=== PATIENT | male | born 1980 | race Caucasian/White ===

== ENCOUNTER 2023-02-17 20:37 | Emergency (ER) | payer SELFPAY ==
[2023-02-17 20:42] VITALS: BP 113/78; PULSE 130; RESP 18; TEMP 38.2; O2SAT 97; BMI 33.0
[2023-02-17 20:57] VITALS: PULSE 134; RESP 18; TEMP 38.2; O2SAT 94
--- NOTE | 2023-02-17 21:02 | ED_ITS ---
HPI - Fever General Chief Complaint: Fever Stated Complaint: Fever, short of breath Time Seen by Provider: 02/17/23 20:55 History of Present Illness HPI Narrative: This 42-year-old male comes in reporting fever that began today. He states that he was not feeling well and thought it was allergies. This is been going on for 2 or 3 weeks. He did go into urgent care 4 days ago and received a prescription for montelukast which has not helped him at all. He does not report any shortness of breath and states that he just has an occasional cough. He does not report any symptoms of dysuria. He does arrive with temperature of 100.7? F and a heart rate in the 130s. He is not reporting any pain. He does not report any shortness of breath or chest discomfort. Related Data Previous Rx's Medication Instructions Recorded azelastine 0.05 % eye drops 1 drp ophthalmic (eye) BID #6 mL 02/09/23 montelukast 10 mg tablet 10 mg PO QDAY #30 tabs 02/09/23 Allergies Allergy/AdvReac Type Severity Reaction Status Date / Time carbamide peroxide Allergy Mild Unknown Verified 02/09/23 15:22 glycerin Allergy Mild Unknown Verified 02/09/23 15:22 Review of Systems Status of ROS Reports: 10 or more systems reviewed and unremarkable except as noted in History and below Narrative Constitutional: No weight gain or loss. Fever today that he measured at around 102? F. Eyes: No discharge. No vision changes. HENT: No congestion, no sore throat, no ear pain. Cardiovascular: No chest pain, no palpitations. Respiratory: No shortness of breath, no wheezes. Occasional cough. Gastrointestinal: No abdominal pain, no vomiting, no diarrhea. Genitourinary: No dysuria, no hematuria. Musculoskeletal: Normal range of motion. Skin: No rashes, no pruritis. Neurological: No dizziness, weakness, sensory change, speech change. Endo/Heme/Allergies: No bruising or bleeding. No polydipsia. Pysch: no suicidality, no anxiety, no insomnia. All other systems reviewed and are negative. [facility] Medical History (Updated 02/17/23 @ 22:09 by [place] Augustin MD) Otitis media ?H66.90 - Otitis media, unspecified, unspecified ear (ICD-10) Social History Smoking Status: Never smoker Do you use any of these nicotine containing products: None Non-prescribed substance use: denies use Exam Narrative Exam Narrative: Constitutional: Well-developed, well-nourished, no acute distress. HEENT: Normocephalic, atraumatic. Neck: Normal range of motion. Nontender. Supple. Heart: Regular. No murmurs. Tachycardia. Intact distal pulses. Lungs: Clear to auscultation. No chest discomfort. No wheezes, rhonchi, or rales. Abdomen: Normal bowel sounds. Nontender. No rebound tenderness. Genitalia: Deferred. Back: No midline tenderness. Normal range of motion. Extremities: Normal range of motion. No injury. Skin: Intact. No rash. Warm. No erythema or pallor. Neurologic: No altered sensation. No weakness. Alert and oriented. Psychiatric: No suicidality. No anxiety or depression. No insomnia. Nursing notes and vitals signs are reviewed. Const Vital Signs, click to edit/add: Vital Signs - 24 hr 02/17/23 20:42 02/17/23 20:57 Temperature 100.7 F H 100.7 F H Pulse Rate [Pulse Oximeter] 130 H 134 H Respiratory Rate 18 18 Blood Pressure [Right Upper Arm] 113/78 Pulse Oximetry 97 94 Oxygen Delivery Method Room Air Room Air Course Vital Signs Vital signs: Initial Vital Signs Temperature 100.7 F H 02/17/23 20:42 Temperature Source Oral 02/17/23 20:42 Pulse Rate 130 H 02/17/23 20:42 Respiratory Rate 18 02/17/23 20:42 Blood Pressure 113/78 02/17/23 20:42 Blood Pressure Mean 89 02/17/23 20:42 Blood Pressure Position Sitting 02/17/23 20:42 Pulse Oximetry 97 02/17/23 20:42 Oxygen Delivery Method Room Air 02/17/23 20:42 Vital Signs Temperature 100.7 F H 02/17/23 20:42 Pulse Rate 130 H 02/17/23 20:42 Respiratory Rate 18 02/17/23 20:42 Blood Pressure 113/78 02/17/23 20:42 Pulse Oximetry 97 02/17/23 20:42 Oxygen Delivery Method Room Air 02/17/23 20:42 Temperature 100.7 F H 02/17/23 20:57 Pulse Rate 134 H 02/17/23 20:57 Respiratory Rate 18 02/17/23 20:57 Blood Pressure 113/78 02/17/23 20:42 Pulse Oximetry 94 02/17/23 20:57 Oxygen Delivery Method Room Air 02/17/23 20:57 MDM - Fever MDM Narrative Medical decision making narrative: SIRS Criteria for sepsis involve any two of the following criteria: Temperature >38 or <36C; heart rate > 90 bpm; Respiratory rate >20 breaths/minute or partial pressure of CO2 < 32 mmHg. Based on this this patient does meet criteria for sepsis workup and treatment. This patient presents with symptoms suspicious for sepsis. Appropriate labs are ordered which may include CBC, BMP, lactate, and blood cultures. The initial lactate returns at 1.8. One thousand mL of IV fluids were ordered at a rate of 1000 mL/hr. Antibiotic treatment is not indicated at this time. Based on these results the patient does not have severe sepsis or septic shock. Chest x-ray returns with no acute findings. Lab results also are reassuring. His nasal pharyngeal swab does return positive for COVID. This is the explanation for his tachycardia and fever. Patient is not showing any sign of shortness of breath. He is okay to be discharged home. He received a prescription for Toradol. He is encouraged to return if becoming short of breath or worsening symptoms happen. Lab Data Labs: Lab Results 02/17/23 02/17/23 Range/Units 20:55 21:28 WBC 10.05 (4.50-11.00) K/uL RBC 5.44 (4.30-5.90) m/uL Hgb 15.7 (13.5-17.5) gm/dL Hct 46.9 (37.0-53.0) % MCV 86 (80-100) fL MCH 29 (26-34) pg MCHC 34 (32-36) gm/dL RDW Coeff of Sandra 13.0 (11.5-15.5) % Plt Count 177 (140-440) K/uL Neut % (Auto) 83.2 H (42.0-72.0) % Lymph % (Auto) 7.4 L (20-44) % [place] % (Auto) 8.2 (0.0-11.0) % Eos % (Auto) 0.8 (0.0-7.0) % Baso % (Auto) 0.3 (0.0-3.0) % Neut # (Auto) 8.40 H (1.7-7.0) K/uL Lymph # (Auto) 0.70 L (0.90-2.90) K/uL [place] # (Auto) 0.80 (0.00-0.90) K/UL Eos # (Auto) 0.08 (0.00-0.50) K/uL Baso # (Auto) 0.03 (0.00-0.30) K/uL Abs Immat Gran (auto) 0.01 (0.00-0.30) K/uL Imm/Tot Granulo (auto) 0.1 % Sodium 135 (135-149) mmol/L Potassium 3.8 (3.6-5.1) mmol/L Chloride 100 (96-114) mmol/L Carbon Dioxide 27 (20-32) mmol/L Anion Gap 8 (7-15) mEq/L BUN 13 (5-24) mg/dL Creatinine 1.1 (0.5-1.5) mg/dL Estimated Creat Clear 84.64 Estimated GFR 86 ml/min Glucose 119 H (60-115) mg/dL Lactate 1.8 (0.5-1.9) mmol/L Calcium 9.0 (8.4-10.6) mg/dL SARS-CoV-2 (PCR) POSITIVE SARS-CoV-2 A (Negative) Influenza Type A (PCR) Negative PCR FLU A (Negative) Influenza Type B (PCR) Negative PCR FLU B (Negative) Discharge Plan Discharge Clinical Impression: COVID-19 Patient Disposition: Home, Self-Care Condition: Unchanged Additional Instructions: Take medication as needed and prescribed. Use [id number] medicines also as needed and directed. Follow up with MD or return if worsening symptoms happen. Prescriptions: No Action montelukast 10 mg tablet 10 mg PO QDAY Qty: 30 2RF azelastine 0.05 % drops 1 drp ophthalmic (eye) BID Qty: 6 2RF Follow Up/Referrals: Provider,Not a Local [Primary Care Provider] - Stand Alone Forms: [employer] Info Instructions
--- NOTE | 2023-02-17 21:09 | CRLHL7_ITS ---
For Patients: As a result of the Cures Act, medical imaging exams and procedure reports are released immediately into your electronic medical record. You may view this report before your referring provider. If you have questions, please contact your health care provider. INDICATION: Fever, tachycardia TECHNIQUE: Chest radiograph 2 views COMPARISON: 05/21/2012 FINDINGS: Mediastinum: The mediastinum is normal in appearance. The heart silhouette is normal in size and morphology. Lung: Small lung volumes with mild right basilar subsegmental atelectasis noted. No sign of pleural effusion seen. No pneumothorax is identified. Bone and Soft tissue: Unremarkable for age. IMPRESSION: 1. Small lung volumes with mild right basilar subsegmental atelectasis noted. Dictated by Raheel Sahni MD @ 02/17/2023 10:06:03 PM Dictated by: Raheel Sahni MD @ 02/17/2023 22:06:06 (Electronically Signed)
[2023-02-17 21:34] LABS: Lactate* 1.8 mmol/L (0.5-1.9)
[2023-02-17] MEDS: 0.9 % SODIUM CHLORIDE 1000 ml 1,000 ML IV (21:35)
[2023-02-17 21:38] LABS: Basophils Absolute Auto 0.03 K/uL (0.00-0.30); Basophils Percent Auto 0.3 % (0.0-3.0); Eosinophils Absolute Auto 0.08 K/uL (0.00-0.50); Eosinophils Percent Auto 0.8 % (0.0-7.0); Hematocrit 46.9 % (37.0-53.0); Hemoglobin* 15.7 gm/dL (13.5-17.5); Immature Granulocytes Abs Auto 0.01 K/uL (0.00-0.30); Immature Granulocytes Pct Auto 0.1 %; Lymphocytes Percent Auto 7.4 % (20-44); Mean Corpuscular HGB Conc 34 gm/dL (32-36); Mean Corpuscular Hemoglobin 29 pg (26-34); Mean Corpuscular Volume 86 fL (80-100); Monocytes Percent Auto 8.2 % (0.0-11.0); Neutrophils Percent Auto 83.2 % (42.0-72.0); Platelet Count* 177 K/uL (140-440); Red Blood Count 5.44 m/uL (4.30-5.90); White Blood Count* 10.05 K/uL (4.50-11.00)
[2023-02-17 21:40] LABS: Slide Review Reflex No
[2023-02-17 21:41] LABS: PCR FLU A Negative PCR FLU A (Negative); PCR FLU B Negative PCR FLU B (Negative)
[2023-02-17] MEDS: ACETAMINOPHEN 500 MG TABLET 1000 MG PO (21:45)
[2023-02-17 21:52] LABS: Chloride* 100 mmol/L (96-114); Potassium* 3.8 mmol/L (3.6-5.1); Sodium* 135 mmol/L (135-149)
[2023-02-17 21:55] LABS: Anion Gap 8 mEq/L (7-15); Blood Urea Nitrogen* 13 mg/dL (5-24); Carbon Dioxide* 27 mmol/L (20-32); Creatinine* 1.1 mg/dL (0.5-1.5); Est. Creatinine Clearance* 84.64; Estimated Glomerular Filt Rate 86 ml/min; Glucose* 119 mg/dL (60-115)
[2023-02-17 21:57] LABS: SARS PCR* POSITIVE SARS-CoV-2 (Negative)
[2023-02-17 22:12] LABS: Free T4 Free Thyroxine* 0.94 ng/dL (0.70-1.85)
== END 2023-02-17 22:29 | disposition home or self-care (01) ==
PROVIDERS: Emergency Provider Emergency Medicine Emergency Medical Services
DX: U07.1 COVID-19 (principal)
CPT/HCPCS: 36415; 71046; 80048; 83605; 84439; 85025; 87040; 87631; 99283; 99284; A9270; J7030

== ENCOUNTER 2025-04-13 12:23 | Emergency (ER) | payer OTHER, SELFPAY ==
--- OUTSIDE RECORDS SUMMARY | 2025-04-13 12:26 | XMS_ITS | Clinical Summary ---
Author Organization [employer] [facility] Address [address] [place] [id number] Care Team Providers Care Account Manager [employer] Name Role Phone Ronal Ace MD Primary Care Provider + [phone] Allergies Active Allergy Reactions Criticality Noted Date Comments Mensah Flavor Vomiting 08/05/2021 Hydrogen Peroxide 10/16/2008 Medications loratadine (CLARITIN) 10 mg tabletIndicati ons:Other allergic rhinitis Take 1 tablet by mouth once daily. 20 tablet 0 5 Active HYDROcodone-ac etaminophen, 5-325 mg, (NORCO) per tabletIndicati ons:Sciatica, left Take 1 tablet by mouth every 4 hours if needed for Pain. Max acetaminophen dose: 4000mg in 24 hrs. 20 tablet 0 5 Active cyclobenzaprin e (FLEXERIL) 10 mg tabletIndicati ons:Spasm of abdominal muscles of right side Take 1 Tablet (10 mg) by mouth 3 times daily if needed for Muscle Spasm. 12 Tablet 2 Active Immunizations Immunization Administration Dates Next Due Tdap 08/12/2019 Social History Tobacco Use Types Packs/Day Years Used Date Smoking Tobacco: Passive Smo ke Exposure - Never Smoker Smokeless Tobacco: Never Alcohol Use Standard Drinks/Week Comments Yes 0 (1 standard drink = 0.6 oz pur e alcohol) social Sex and Gender Information Value Date Recorded Sex Assigned at Not on file Legal Sex Male 6:27 AM [employer] Gender Identity Not on file Sexual Orientation Not on file Obstetrics History Last Filed Vital Signs Vital Sign Reading Time Taken Comments Blood Pressure 117/75 08/06/2021 12:04 AM [employer] Pulse 86 08/06/2021 12:04 AM [employer]CE [employer] Temperature 36.7 C (98.1 F) 08/05/2021 11:34 PM [employer]ORCE [employer]IATOR Respiratory Rate 16 08/05/2021 11:34 PM [employer]CE [employer] Oxygen Saturation 96% 08/06/2021 12:04 AM [employer]ORCE MEDIATOR Inhaled Oxygen Concentration - - Weight 98 kg (216 lb) 08/05/2021 11:34 PM DIVORCE MEDIATOR Height 172.7 cm (5' 8) 08/05/2021 11:34 PM [employer]ORCE [employer] Body Mass Index 32.84 08/05/2021 11:34 PM [employer]CE [employer] Plan of Treatment Not on file Insurance [address] [place] [id number] [employer] [address] [place] [id number] [place] [phone] Care Teams Account Manager [employer] Relationship Specialty Start Date End Date Ronal Ace MD PCP - General 08/05/21
[2025-04-13 12:28] VITALS: BP 133/86; PULSE 84; RESP 20; TEMP 37.1; O2SAT 98; BMI 33.0
--- NOTE | 2025-04-13 12:36 | ED.GENADULT ---
HPI - General Adult General Date Seen: 04/13/25 Chief complaint: Abdominal Pain Stated complaint: GI Issue, Vomiting,chills Time Seen by Provider: 04/13/25 12:26 History of Present Illness HPI narrative: 44 yo gender and hot female who presents to the ER today, accompanied by his from home, for evaluation of abdominal pain, cramping, diarrhea, nausea. He notes that he ate quite a few (cooked) oysters at a buffet 8 days ago, last Monday. He was well last Monday and then on Monday started with abdominal cramping. The following day on Monday in addition to crampy started developing diarrhea that is been frequent every day since then in typically yellow water. Sometimes had a few flecks of blood in the diarrhea. Cramping is mostly in the left lower quadrant. He tends to feel worse in the mornings and is better in the afternoon and evenings. He has not had a fever. He has been nauseous but not vomiting. Urination has been. He initially thought that he might have a GI virus and so was trying to wait for his symptoms to get better but noticing that he has been continually getting sick now for 5 days, he was suspicious that was a bacterial infection so he came in. He does not have any other medical conditions. No immunosuppression or diabetes. No recent travel. No recent antibiotics. No sick exposures. His and children are not ill. No other suspicious food other than the oysters from the buffet. He has had previous appendectomy. Related Data Previous Rx's ?Medication ?Instructions ?Recorded doxycycline hyclate 100 mg capsule 100 mg PO BID #10 caps 04/13/25 ondansetron 4 mg disintegrating 4 mg PO Q8H PRN nausea and 04/13/25 tablet vomiting #10 tabs Allergies Allergy/AdvReac Type Severity Reaction Status Date / Time carbamide peroxide Allergy Mild Unknown Verified 03/07/23 14:50 glycerin Allergy Mild Unknown Verified 03/07/23 14:50 [facility] Medical History (Updated 04/13/25 @ 15:51 by Michael Tejeda MD) Otitis media ?H66.90 - Otitis media, unspecified, unspecified ear (ICD-10) Social History Smoking Status: Never smoker Do you use any of these nicotine containing products: None How often do you have a drink containing alcohol: monthly or less How often do you have six or more drinks on one occasion: Never AUDIT-C Alcohol total score: 1 Non-prescribed substance use: denies use Exam Narrative: Exam Narrative: Constitutional: Appears well-developed and well-nourished. Alert. Conversant. Non toxic. HENT: Head: Atraumatic. Nose: Nose normal. Mouth/Throat: Oral mucosa is clear and moist, not desiccated or cracked. no trismus. Pharynx normal. Tonsils symmetric. No tonsillar enlargement, erythema, or exudate. Eyes: Conjunctivae normal. EOM normal. Pupils equal, round, and reactive to light. No scleral icterus. Neck: Normal range of motion. Neck supple. No tracheal deviation present. Cardiovascular: Normal rate, regular rhythm. No gallop. No friction rub. No murmur heard. Symmetric radial artery pulses Pulmonary/Chest: Effort normal. No stridor. No respiratory distress. No wheezes. No rales. No rhonchi . No tenderness. Abdominal: Soft. Bowel sounds normal. No distension. No mass. Moderate left lower quad tenderness. No rebound. No guarding. No CVA tenderness. No right lower quadrant tenderness. Musculoskeletal: RUE: Normal range of motion. No tenderness. No deformity LUE: Normal range of motion. No tenderness. No deformity RLE: Normal range of motion. No edema. No tenderness. No deformity LLE: Normal range of motion. No edema. No tenderness. No deformity Lymph: No cervical adenopathy. Neurological: Alert and oriented to person, place, and time. Normal strength. CN II-VII intact. No sensory deficit. GCS eye subscore is 4. GCS verbal subscore is 5. GCS motor subscore is 6. Normal coordination Skin: Skin is warm and dry. No rash noted. No pallor. Normal capillary refill. Psychiatric: Normal mood. Normal affect. Const: Vital Signs, click to edit/add: Vital Signs - 24 hr 04/13/25 12:28 04/13/25 14:03 04/13/25 15:10 Temperature 98.7 F Pulse Rate [Pulse Oximeter] 84 75 Respiratory Rate 20 16 Blood Pressure [Ri ght Upper Arm] 133/86 121/71 128/82 Pulse Oximetry 98 95 Oxygen Delivery Me thod Room Air Room Air Course Vital Signs Vital signs: Initial Vital Signs Temperature 98.7 F 04/13/25 12:28 Temperature Source Temporal Artery Scan 04/13/25 12:28 Pulse Rate 84 04/13/25 12:28 Respiratory Rate 20 04/13/25 12:28 Blood Pressure 133/86 04/13/25 12:28 Blood Pressure Mean 101 04/13/25 12:28 Blood Pressure Position Sitting 04/13/25 12:28 Pulse Oximetry 98 04/13/25 12:28 Oxygen Delivery Method Room Air 04/13/25 12:28 Vital Signs Temperature 98.7 F 04/13/25 12:28 Pulse Rate 84 04/13/25 12:28 Respiratory Rate 20 04/13/25 12:28 Blood Pressure 133/86 04/13/25 12:28 Pulse Oximetry 98 04/13/25 12:28 Oxygen Delivery Method Room Air 04/13/25 12:28 Temperature 98.7 F 04/13/25 12:28 Pulse Rate 75 04/13/25 14:03 Respiratory Rate 16 04/13/25 14:03 Blood Pressure 128/82 04/13/25 15:10 Pulse Oximetry 95 04/13/25 14:03 Oxygen Delivery Method Room Air 04/13/25 14:03 Medications Administered Medications: Discontinued Medications Generic Name Dose Route Start Last Admin Trade Name Freq PRN Reason Stop Dose Admin Ciprofloxacin 750 mg 04/13/25 15:43 04/13/25 16:03 Ciprofloxacin 500 Mg Tablet PO 04/13/25 15:44 750 mg ONCE ONE Administration Doxycycline Hyclate 100 mg 04/13/25 15:43 04/13/25 16:03 Doxycycline Hyclate 100 Mg PO 04/13/25 15:44 100 mg ONCE ONE Administration Sodium Chloride 1,000 mls @ 1,000 mls/hr 04/13/25 13:45 04/13/25 14:09 0.9 % Sodium Chloride 1000 Ml IV 04/13/25 14:44 Infused .Q1H IAN Infusion Ketorolac Tromethamine 15 mg 04/13/25 13:32 04/13/25 13:47 Ketorolac 15 Mg/Ml Inj IVP 04/13/25 13:33 15 mg ONCE ONE Administration Loperamide HCl 4 mg 04/13/25 13:36 04/13/25 13:47 Loperamide Hcl 2 Mg Capsule PO 4 mg ONCE PRN Administration Ondansetron HCl 4 mg 10/26/25 13:32 04/13/25 13:47 Ondansetron 2 Mg/Ml Inj IVP 04/13/25 13:33 4 mg ONCE ONE Administration Medical Decision Making MDM Narrative Medical decision making narrative: Very pleasant 44-year-old gentleman presenting to the ER today with a 5 day history of abdominal cramping and yellow we watery diarrhea. He had consumed multiple oysters out of a buffet 2 days prior to onset of symptoms. He is hemodynamically stable but uncomfortable upon arrival. Feeling better after fluids and meds administered. On exam he is tender in the left lower quadrant but not peritoneal guarding. He has previous appendectomy. At this point I do not think he needs CT scan given low likelihood for acute surgical emergency. Laboratory workup reassuring. Concern here is that he likely has a bacterial enteritis causing his symptoms. With exposure to oysters am concerned about vibrio. I have ordered a GI pathogen panel to assess is this. This result is not back at this time minimal like oval will not result for the next 24-48 hours. At this point based on high clinical suspicion were going to treat empirically for vibrio infection. Based on my review references some strains of a [place] can be treated with a single dose of Cipro 750 mg. This is administered here in the ER. Vibrio vulnificus requires a course of doxycycline.. Started on 1st dose of doxycycline here and will continue on 100 mg p.o. b.i.d. for 5 days. If culture grows other pathogen, we will need to change antibiotics accordingly. Precautions for return to the ER reviewed. Lab Data Labs: Lab Results 04/13/25 Range/Units 13:05 WBC 8.84 (4.50-11.00) K/uL RBC 5.90 (4.30-5.90) m/uL Hgb 17.1 (13.5-17.5) gm/dL Hct 50.2 (37.0-53.0) % MCV 85 (80-100) fL MCH 29 (26-34) pg MCHC 34 (32-36) gm/dL RDW Coeff of Sandra 12.9 (11.5-15.5) % Plt Count 216 (140-440) K/uL Neut % (Auto) 73.8 H (42.0-72.0) % Lymph % (Auto) 17.3 L (20-44) % [place] % (Auto) 6.7 (0.0-11.0) % Eos % (Auto) 1.9 (0.0-7.0) % Baso % (Auto) 0.2 (0.0-3.0) % Neut # (Auto) 6.50 (1.7-7.0) K/uL Lymph # (Auto) 1.50 (0.90-2.90) K/uL [place] # (Auto) 0.60 (0.00-0.90) K/UL Eos # (Auto) 0.17 (0.00-0.50) K/uL Baso # (Auto) 0.02 (0.00-0.30) K/uL Abs Immat Gran (auto) 0.01 (0.00-0.30) K/uL Imm/Tot Granulo (auto) 0.1 % Sodium 136 (135-149) mmol/L Potassium 3.8 (3.6-5.1) mmol/L Chloride 99 (96-114) mmol/L Carbon Dioxide 27 (20-32) mmol/L Anion Gap 10 (7-15) mEq/L BUN 15 (5-24) mg/dL Creatinine 0.9 (0.5-1.5) mg/dL Estimated Creat Clear 101.33 Estimated GFR 108 ml/min Glucose 108 (60-115) mg/dL Lactate 1.0 (0.5-1.9) mmol/L Calcium 9.0 (8.4-10.6) mg/dL Total Bilirubin 0.6 (0.1-1.5) mg/dL Direct Bilirubin 0.2 (0.0-0.5) mg/dL AST 57 H (12-35) U/L ALT 114 H (4-50) U/L Alkaline Phosphatase 91 (40-150) U/L Total Protein 8.4 H (6.0-8.3) g/dL Albumin 4.6 (3.3-5.0) g/dL Discharge Plan Discharge Clinical Impression: Diarrhea, Abdominal pain Patient Disposition: Home, Self-Care Condition: Stable Instructions: Acute Diarrhea (ED), Abdominal Pain (ED) Additional Instructions: As we discussed, so far your laboratory lab workup looks reassuring. However, we are concerned that you probably have a bacterial infection in your intestines with a bacteria called vibrio. Your stool culture result is not back today and may not come back for 1 or 2 more days. However I want you to start on antibiotics today based on our suspicion that you do have a vibrio infection. You have been given ciprofloxacin single dose here in the ER. We will start you on an additional antibiotic called doxycycline 100 mg by mouth twice daily for 5 days As we discussed, please return to the ER if you have worsening condition especially high fever, worsening abdominal pain, bloody stools, uncontrolled vomiting, weakness. If you are not substantially improved within 72 hours, please recheck with your doctor or come back to the ER. Prescriptions: New doxycycline hyclate 100 mg capsule 100 mg PO BID Qty: 10 0RF ondansetron 4 mg tablet,disintegrating 4 mg PO Q8H PRN (Reason: nausea and vomiting) Qty: 10 0RF Follow Up/Referrals: Provider,Not a Local [Primary Care Provider, Family Practice] Stand Alone Forms: [employer] Info Instructions
[2025-04-13 13:15] LABS: Hematocrit* 50.2 % (37.0-53.0); Hemoglobin* 17.1 gm/dL (13.5-17.5); Immature Granulocytes Abs Auto 0.01 K/uL (0.00-0.30); Immature Granulocytes Pct Auto 0.1 %; Mean Corpuscular HGB Conc 34 gm/dL (32-36); Mean Corpuscular Hemoglobin 29 pg (26-34); Mean Corpuscular Volume 85 fL (80-100); RDW Coefficient of Variation % 12.9 % (11.5-15.5); Red Blood Count* 5.90 m/uL (4.30-5.90); White Blood Count* 8.84 K/uL (4.50-11.00)
[2025-04-13 13:23] LABS: Lactate* 1.0 mmol/L (0.5-1.9)
[2025-04-13 13:25] LABS: Lymphocytes Absolute Auto 1.50 K/uL (0.90-2.90); Slide Review Reflex No
[2025-04-13 13:32] LABS: Albumin* 4.6 g/dL (3.3-5.0); Chloride* 99 mmol/L (96-114); Potassium* 3.8 mmol/L (3.6-5.1); Sodium* 136 mmol/L (135-149)
[2025-04-13 13:35] LABS: Alanine Aminotransferase* 114 U/L (4-50); Alkaline Phosphatase* 91 U/L (40-150); Anion Gap 10 mEq/L (7-15); Aspartate Amino Transferase* 57 U/L (12-35); Bilirubin Direct* 0.2 mg/dL (0.0-0.5); Bilirubin Total* 0.6 mg/dL (0.1-1.5); Blood Urea Nitrogen* 15 mg/dL (5-24); Carbon Dioxide* 27 mmol/L (20-32); Creatinine* 0.9 mg/dL (0.5-1.5); Est. Creatinine Clearance* 101.33; Estimated Glomerular Filt Rate 108 ml/min; Total Protein* 8.4 g/dL (6.0-8.3)
[2025-04-13 13:36] LABS: Calcium* 9.0 mg/dL (8.4-10.6); Glucose* 108 mg/dL (60-115)
[2025-04-13] MEDS: ONDANSETRON 2 MG/ML inj 4 MG IVP (13:47)
[2025-04-13] MEDS: LOPERAMIDE HCL 2 MG CAPSULE 4 MG PO (13:47)
[2025-04-13 14:03] VITALS: BP 121/71; PULSE 75; RESP 16; O2SAT 95
[2025-04-13 15:10] VITALS: BP 128/82
[2025-04-13] MEDS: CIPROFLOXACIN 500 MG TABLET 750 MG PO (16:03)
[2025-04-13] MEDS: DOXYCYCLINE HYCLATE 100 MG PO (16:03)
[2025-04-16 04:03] LABS: Campylobacter PCR Not Detected; Enteroaggregative E coli PCR Not Detected; Enteropathogenic E coli PCR Not Detected; Enterotoxigenic E coli PCR Not Detected; Plesiomonas shig PCR Not Detected; Shiga toxin E coli PCR Not Detected
== END 2025-04-13 16:08 | disposition home or self-care (01) ==
PROVIDERS: Emergency Provider Emergency Medicine
DX: R19.7 Diarrhea, unspecified (principal); R10.9 Unspecified abdominal pain
CPT/HCPCS: 36415; 80048; 80076; 83605; 85025; 87507; 99283; 99284; A9270; J1885; J2405; J7030